=== PATIENT | male | born 1985 | race Hispanic/Latino ===

== ENCOUNTER → 2019-01-17 | Outpatient (CLI) | payer MEDICARE ==
[~2019-01-17] MED LIST: CETI10TA86 PO; LEVE500T19 PO; METF500T PO; MULTIVITAMIN; OLAN15TA18 PO; OMEG1CAP83 PO; PANT40TA25 PO; SIMV10TA6 PO
== END | disposition home or self-care (01) ==
LOC: RAH 11:18
PROVIDERS: ATTEND Internal Medicine Critical Care Medicine
DX: R91.8 Other nonspecific abnormal finding of lung field (principal); M47.815 Spondylosis without myelopathy or radiculopathy, thoracolumbar region; I51.7 Cardiomegaly
CPT/HCPCS: 71046

== ENCOUNTER → 2020-12-18 | Outpatient (CLI) | payer MEDICARE ==
[~2020-12-18] MED LIST changes: -OLAN15TA18 PO; +OLAN15TA36 PO; -PANT40TA25 PO; +PANT40TA54 PO; -SIMV10TA6 PO; +SIMV10TA97 PO
== END | disposition home or self-care (01) ==
LOC: SHCH 14:06
PROVIDERS: ATTEND Internal Medicine Cardiovascular Disease
DX: I10 Essential (primary) hypertension (principal); E66.9 Obesity, unspecified; E78.5 Hyperlipidemia, unspecified; E11.9 Type 2 diabetes mellitus without complications
CPT/HCPCS: 93306; 93356

== ENCOUNTER → 2024-05-15 | Outpatient (CLI) | payer OTHER, MEDICARE ==
[~2024-05-15] MED LIST changes: -CETI10TA86 PO; +CETI10TA87 PO; -OLAN15TA36 PO; +OLAN15TA98 PO
[2024-05-15 16:59] LABS: CREATININE 0.9 mg/dL (0.5-1.3); POTASSIUM 4.7 mmol/L (3.5-5.1)
== END | disposition home or self-care (01) ==
LOC: LAB 15:18
PROVIDERS: ATTEND Internal Medicine Cardiovascular Disease
DX: I10 Essential (primary) hypertension (principal); Q24.9 Congenital malformation of heart, unspecified; Q90.9 Down syndrome, unspecified
CPT/HCPCS: 36415; 80048; 83880; 85378

== ENCOUNTER → 2024-06-19 | Outpatient (CLI) | payer OTHER, MEDICARE ==
--- NOTE | 2024-06-21 17:40 | HMCSR ---
APPROVED REPORT EXAM: Two-dimensional and M-mode echocardiogram with Doppler and color Doppler. 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, unspecified Down Syndrome 2D Dimensions RVDd4.5 cmLVEF(%)69.3 (>50%)LVED Vol(simp.)112.0 mL IVSd1.0 (0.7-1.1cm)FS(%)38 %LVES Vol(simp.)52.0 mL LVDd4.0 (3.8-5.6cm)Ao Root(2D)3.4 (2.0-3.7cm)LVEF(%, simp.)53 % PWd1.0 (0.7-1.1cm)LVOT diam2.2 (1.8-2.4cm)LA ESV INDEX (BP)13.45 mL/m2 LVDs2.5 (2.5-4.0cm)IVC diam1.4 cm Aortic Valve AoV Vmax1.1 m/Daniela Peak GR4.9 mmHgLVOT Vmax0.9 m/s AoV VTI0.2 mAo Mean GR2.8 mmHgLVOT VTI0.15 m JONAH (VMAX)3.2 cm2AVA (VTI) 3.2 cm2 Mitral Valve MV E Vmax98.5 cm/sDECEL Fngd436 ms MV A Vmax42.6 cm/sP 1/2 T36 ms E/A ratio2.3MVA (PHT)6.2 cm2 TDI E/E' Xymykz65.3E/E' Lateral6.3 Pulmonary Valve PV Vmax1.2 m/sPV VTI0.18 mPV Mean GR3 mmHg PV Peak GR5.6 mmHg Tricuspid Valve TR Vmax2.2 m/sRAP (EST) 3 nxZpWELS98.9 mmHg TR Peak GR19.9 mmHg Left Ventricle Left ventricular cavity size is normal. There is normal left ventricular wall thickness. LVEF is 50-5 5%. Grade 3 diastolic dysfunction. Right Ventricle The right ventricle is moderately dilated. The right ventricular systolic function is normal. Atria The left atrium size is normal. Possible PFO is noted. The right atrium is mildly dilated. Aortic Valve Aortic valve is trileaflet. Aortic valve leaflets are sclerotic but open well. Trace aortic regurgita tion. There is no aortic valvular stenosis. Mitral Valve Mitral valve leaflets are mildly sclerotic but open well. Mitral regurgitation is trace. There is no mitral valve stenosis. Tricuspid Valve The tricuspid valve leaflets appear normal. There is trace tricuspid regurgitation. Pulmonic Valve Pulmonic valve is not well visualized. There is trace pulmonic valvular regurgitation. Great Vessels The aortic root is normal in size. The IVC is normal in size and collapses >50% with inspiration. Pericardium No pericardial effusion. Conclusion There is normal left ventricular wall thickness. LVEF is 50-55%. Grade 3 diastolic dysfunction.
== END | disposition home or self-care (01) ==
LOC: SHCH 14:58
PROVIDERS: ATTEND Internal Medicine Cardiovascular Disease
DX: I08.0 Rheumatic disorders of both mitral and aortic valves (principal); F84.0 Autistic disorder; Q24.9 Congenital malformation of heart, unspecified; Q90.9 Down syndrome, unspecified
CPT/HCPCS: 93306

== ENCOUNTER 2024-09-06 08:37 | Day surgery (SDC) | payer OTHER, MEDICAID ==
[2024-09-06] VITALS (11 sets, daily range): BP systolic 104–133; BP diastolic 42–76; PULSE 76–87; RESP 16–22; TEMP 97.1–97.7
[~2024-09-06] VITALS: Ht 152.4 cm; Wt 124.7 kg
[2024-09-06] MEDS: 0.9%NACL 1000ML 1,000 ML IV ONE (08:53)
[2024-09-06] MEDS ORDERED: OLAN20TA82 PO ×2 (09:25→09:26)
[2024-09-06] MEDS ORDERED: RIVA20TA PO (09:25)
[2024-09-06] MEDS ORDERED: OLAN10TA3 PO (09:25)
[2024-09-06] MEDS ORDERED: proPOFol 10 MG/ML 20ML VIAL IV ONE (11:25)
== END 2024-09-06 12:43 | disposition home or self-care (01) ==
LOC: ENDO 08:37 → DAH 08:37 → ENDO 12:43
PROVIDERS: ATTEND Internal Medicine Gastroenterology
DX: R13.10 Dysphagia, unspecified (principal); K29.50 Unspecified chronic gastritis without bleeding; R10.13 Epigastric pain; K22.2 Esophageal obstruction; K21.00 Gastro-esophageal reflux disease with esophagitis, without bleeding; F20.9 Schizophrenia, unspecified; E78.5 Hyperlipidemia, unspecified; E11.40 Type 2 diabetes mellitus with diabetic neuropathy, unspecified; R19.7 Diarrhea, unspecified; K76.0 Fatty (change of) liver, not elsewhere classified; I27.82 Chronic pulmonary embolism; E78.2 Mixed hyperlipidemia; Z88.0 Allergy status to penicillin; Z88.8 Allergy status to other drugs, medicaments and biological substances; Z90.49 Acquired absence of other specified parts of digestive tract; Z95.1 Presence of aortocoronary bypass graft; Z79.84 Long term (current) use of oral hypoglycemic drugs; Z79.899 Other long term (current) drug therapy
CPT/HCPCS: 43249; 82948 ×2; 43239; J7030; J2704; C1726; J3490

== ENCOUNTER → 2025-01-03 | Outpatient (CLI) | payer OTHER, MEDICAID ==
[~2025-01-03] MED LIST changes: +OLAN20TA82 PO; -OMEG1CAP83 PO; -PANT40TA54 PO; +RIVA20TA PO
--- NOTE | 2025-01-04 05:34 | HMCIMG ---
EXAM: CR Left Shoulder, 2 views. CLINICAL HISTORY: Pain. COMPARISON: None provided. FINDINGS: No acute fracture or aggressive appearing osseous lesion. Unremarkable joint spaces. Soft tissue calcification is seen adjacent to the humeral head in subacromial region. 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 IMPRESSION: No acute fracture or dislocation in the left shoulder. Soft tissue calcification is seen adjacent to the humeral head in subacromial region. 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 /[place]
== END | disposition home or self-care (01) ==
LOC: RAH 12:47
PROVIDERS: ATTEND Internal Medicine Critical Care Medicine
DX: M25.512 Pain in left shoulder (principal); M79.89 Other specified soft tissue disorders
CPT/HCPCS: 73030